=== PATIENT | male | born 1990 | race Two or more races ===

== ENCOUNTER 2025-07-21 18:42 | Emergency (ER) | payer OTHER ==
[~2025-07-21] VITALS: Ht 165.1 cm; Wt 79.4 kg
[2025-07-21 19:01] VITALS: BP 145/81; O2SAT 97
[2025-07-21] MEDS ORDERED: ACETAMINOPHEN 500 MG GEL..CAP PO ONE ×2 (19:45→20:31)
[2025-07-21] MEDS ORDERED: FAMOTIDINE/PF 20 MG/2 ML VIAL IV ONE (19:45)
[2025-07-21] MEDS ORDERED: 0.9 % SODIUM CHLORIDE 1,000 ML IV SCH (19:45)
[2025-07-21] MEDS ORDERED: FAMOTIDINE/PF 20 MG/2 ML VIAL ONE (20:32)
[2025-07-21 21:58] LABS: BASO % 0.8 % (0.1-1.2); EOS # 0.25 (0.04-0.54); EOS % 4.8 % (0.7-7.0); LYMPH # 1.99 (1.18-3.74); LYMPH % 38.0 % (19.3-53.1); MEAN PLATELET VOLUME 8.80 fl (9.4-12.4); MONO # 0.30 (0.24-0.82); MONO % 5.7 % (4.7-12.5); NEUT # 2.63 (1.56-6.13); NEUT % 50.3 % (34.0-71.1); RED CELL DISTRIBUTION WIDTH 13.1 % (11.6-14.4)
[2025-07-21 22:01] LABS: ERYTHROCYTE SEDIMENTATION RATE 38 mm/hr (0-15)
[2025-07-21 22:18] LABS: ALT/SGPT 16.0 U/L (12-78); AST/SGOT 12.0 U/L (15-37); BILIRUBIN TOTAL 0.13 mg/dL (0.3-1.2); BUN CREA RATIO 26.0 (7.0-25.0); CREATININE SERUM 0.65 mg/dL (0.70-1.30); GFR 140.62; GLOBULINA 3.3 G/DL (2.4-3.5); GLUCOSE FASTING 98.0 mg/dL (65-100); OSMOLALITY SERUM 285.0 MOSM/KG (275-295)
[2025-07-21 22:19] LABS: INR 0.94
[2025-07-21 22:51] LABS: COVID-19 AG NEGATIVE (NEGATIVE)
[2025-07-21 23:31] LABS: URINE APPEARANCE Cloudy; URINE BILIRRUBIN Negative (NEGATIVE); URINE BLOOD Negative; URINE COLOR Yellow; URINE GLUCOSE Negative (NEGATIVE); URINE KETONE Negative (NEGATIVE); URINE LEUKOCYTE Negative; URINE NITRATE Negative; URINE PROTEIN Negative (NEGATIVE); URINE UROBILINOGEN 0.2 E.U./dl
[2025-07-21 23:35] LABS: URINE BACTERIA 13.7 uL (0.0-1933); URINE RBC 10.9 uL (0.0-20.8)
[2025-07-21 23:48] LABS: URINE CAST 0.00 uL (0.0-1.40); URINE EPITHELIAL CELLS 0.4 uL (0.0-38.8); URINE WBC 0.9 uL (0.0-23.2)
[2025-07-22] MEDS ORDERED: IBUPROFEN200 MG PO (01:00)
[2025-07-22] MEDS ORDERED: MEDROLPACK PO (01:00)
== END 2025-07-22 01:17 | disposition home or self-care (01) ==
LOC: ER 18:43
PROVIDERS: Student in an Organized Health Care Education/Training Program
DX: R22.2 Localized swelling, mass and lump, trunk (principal); Q27.9 Congenital malformation of peripheral vascular system, unspecified; K44.9 Diaphragmatic hernia without obstruction or gangrene; R42 Dizziness and giddiness; Z20.822 Contact with and (suspected) exposure to COVID-19